=== PATIENT | female | born 1950 | race Caucasian/White ===

== ENCOUNTER 2023-09-11 06:06 | Day surgery (SDC) | payer MEDICARE, SELFPAY ==
[2023-09-11] MEDS: LACTATED RINGERS 1000 ML 1,000 ML 100 ML IV (06:20)
[2023-09-11 06:30] VITALS: BP 155/60; PULSE 60; RESP 18; TEMP 36.5; O2SAT 92; BMI 33.7
[2023-09-11] MEDS: SODIUM CHLORIDE 0.9 % (FLUSH) 10 ML SYRINGE IVF (06:44)
--- NOTE | 2023-09-11 07:19 | PM.GSPRC ---
Operative Note Pre-op diagnosis: Lymphadenopathy Post-op diagnosis: Same Type of Procedure: Right femoral lymph node biopsy Indications: Patient is a 73-year-old female who was incidentally found to have lymphadenopathy on surveillance ultrasound for prior femoral endarterectomy/ iliac stenting. CT scan showed diffuse adenopathy in the chest, axilla and bilateral groins. On exam she had a right femoral vein which was the only area that was palpable. We discussed lymph node biopsy for diagnosis and she agreed to proceed. Procedure Description: After discussing the risks and benefits of the procedure, the patient signed informed consent.? The operative site was marked and the patient was brought to the operating room and placed on the operating table in supine position.? Care was taken to pad the patient's pressure points.?? The patient was then given sedation by anesthesia.?? The operative site was then prepped and draped in the usual sterile fashion.? A time-out was then performed. The lymph node in the right groin was palpated again this was overlying the femoral vessels. Local anesthetic was injected into the skin and subcutaneous tissue overlying the mass. An incision was made, following the skin lines. Dissection was taken down into the subcutaneous fat using cautery. This continued until the mass was encountered. There was a fairly large lymph node measuring 2 cm. It was carefully dissected free from the surrounding subcutaneous fat. The feeding vessel and lymphatics were clipped before dividing them. The specimen was then divided and placed an are PMI as well as formalin. Hemostasis appeared excellent. The deep tissue was closed with 3-0 Vicryl. The wound was then closed with 3 0 Vicryl dermal and 4-0 Monocryl running subcuticular suture. Glue was then applied. ? The patient was then woken and transported to the recovery area in stable condition. ? The patient tolerated the procedure well. Findings: Enlarged right femoral lymph node Anesthesia: MAC Surgeon: Cindy Doran MD Estimated blood loss (mL): 1 Additional Specimen Information: 1. Right femoral lymph node, RPMI for lymphoma 2. Right femoral lymph node in formalin Condition: stable Disposition: same day Date of procedure: 09/11/23
[2023-09-11] MEDS: CIPROFLOXACIN 400 MG/200 ML inj IVPB (07:36)
--- NOTE | 2023-09-11 07:45 | SUR.OPER ---
PATIENT QUESTIONS ANSWERED SATISFACTORILY PREOPERATIVELY. PATIENT BROUGHT TO OR #1 PER CART. Patient positioned supine on OR #1 bed. The perioperative team supported arms bilaterally on arm boards. Final approval of positioning by surgeon.
[2023-09-11] MEDS: BUPIVACAINE 0.25% 30 ML 8 ML INJECTION (07:49)
[2023-09-11 08:27] VITALS: BP 135/43; PULSE 62; RESP 14; TEMP 36.6; O2SAT 93
--- NOTE | 2023-09-11 08:40 | W.ANESCHARGE ---
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
[2023-09-11 08:45] VITALS: BP 159/46; PULSE 60; RESP 14; O2SAT 93
[2023-09-11 09:00] VITALS: BP 161/61; PULSE 54; RESP 14; O2SAT 93
[2023-09-11 09:15] VITALS: BP 140/56; PULSE 59; RESP 14; O2SAT 93
== END 2023-09-11 09:24 | disposition home or self-care (01) ==
PROVIDERS: PCP Family Medicine; Visit Provider Surgery
PROC: (CPT 38500; principal; 2023-09-11 07:30)
DX: R59.1 Generalized enlarged lymph nodes (principal)
CPT/HCPCS: 38500; 00400; 88184; 88185; 88305; 88341; 88342; 88360; 99100; J0665; J0744; J2405; J2704; J3010; J7120